=== PATIENT | female | born 1965 | race Caucasian/White ===

== ENCOUNTER 2019-06-21 11:55 | Emergency (ER) | payer OTHER ==
[~2019-06-21] VITALS: Ht 152.4 cm; Wt 84.7 kg
[~2019-06-21 11:55] MED LIST: BENA20TA4 PO; GLIP10TA14 PO; IBUP-1542 PO; METF100010 PO; PIOG15TA12 PO; SIMV20TA PO; SITA100T11 PO
[2019-06-21 12:03] VITALS: BP 146/81; PULSE 72; RESP 17; Ht 152.4 cm; Wt 84.7 kg
[2019-06-21] MEDS ORDERED: LIDOCAINE 2% (MDV) 20 ML INJ INJ ONE (14:30)
== END 2019-06-21 15:37 | disposition home or self-care (01) ==
LOC: FTE 11:55
DX: S62.616A Displaced fracture of proximal phalanx of right little finger, initial encounter for closed fracture (principal); E11.9 Type 2 diabetes mellitus without complications; W18.39XA Other fall on same level, initial encounter; Y92.9 Unspecified place or not applicable
CPT/HCPCS: 12001; 73130; Z7502; Z7610